=== PATIENT | female | born 1945 | race Caucasian/White ===

== ENCOUNTER → 2017-02-05 | Outpatient (CLI) | payer MEDICARE, OTHER ==
[~2017-02-05] MED LIST: ALEVE220 MG PO; COLACE100 MG PO; LISINOPRIL-HCT1 EAC1 PO; MECLIZINE HCL12.5 MG PO; NON-ASPIRIN EX500 M1 PO; NORCO 5-325 TA1 EACH PO; SENOKOT8.6 MG PO; SIMVASTATIN5 MG PO; TENORMIN25 MG PO; ULTRAM50 MG PO; VALIUM5 MG PO; XARELTO10 MG PO; ZYRTEC10 MG PO
== END | disposition disaster alternative care site (69) ==
LOC: GRAD 13:12
DX: Z01.818 Encounter for other preprocedural examination (principal); M25.551 Pain in right hip

== ENCOUNTER 2017-02-06 14:00 | Inpatient (IN) | payer MEDICARE, OTHER ==
[~2017-02-06] VITALS: Ht 152.4 cm; Wt 53.0 kg
--- NOTE | ~2017-02-06 | DS ---
PATIENT'S NAME: KIMBERLY BURGER [facility] AGE: 71 Y [address] ROOM: [address] [address] LOCATION: [facility] ADMIT DATE: 02/10/2017 Discharge Summary DISCHARGE DATE: 02/12/2017 FAMILY PHYSICIAN: Jordan Styles MD ATTENDING PHYSICIAN: Jordan Frye PRIMARY DIAGNOSIS: Osteoarthritis, right hip. SECONDARY DIAGNOSES: 1. Hypertension. 2. Hypercholesterolemia. PROCEDURE PERFORMED: Right total hip arthroplasty. HISTORY: The patient is a 71-year-old female, who presents with advanced right hip degenerative joint disease and associated severely compromised activities of daily living. The patient has decided to proceed with total right hip arthroplasty after having been thoroughly counseled regarding the risks, benefits, limitations and alternatives. Please refer to the outpatient clinic notes and admission history and physical for this patient. HOSPITAL COURSE: The patient underwent a total right hip arthroplasty on 02/10/2017 without complications. Spinal anesthesia plus subcutaneous and periarticular local anesthesia was utilized. The patient received 24 hours of perioperative prophylactic antibiotics and remained hemodynamically stable, neurovascularly intact throughout the entire hospital course. The postoperative prophylactic deep venous thrombosis prophylaxis consisted of Xarelto, early mobilization and pneumatic compression devices. Daily physical therapy for gait training, transfer training, and reinforcement of hip dislocation precautions were received. The patient progressed well in physical therapy. On the date of discharge, 02/12/2017, the incision at the hip was healing well and showed no signs of infection. DISPOSITION: Home. DISCHARGE ACTIVITY: The patient is to bear weight as tolerated with strict hip dislocation precautions as instructed. There are to be no dressing changes. Dr. Frye is to be notified immediately if there is any increased pain, fevers, chills, erythema or drainage. DISCHARGE MEDICATIONS: 1. Xarelto 10 mg 1 tab p.o. daily for 12 days for postop DVT prophylaxis. 2. [place] 5/325 mg 1 to 2 tabs p.o. every 4 hours p.r.n. for pain. 3. Diazepam 5 mg 1/2 to 1 tab p.o. every 6 hours p.r.n. for muscle spasms. 4. The patient was then instructed to continue all her other pre-admission PATIENT'S NAME: KIMBERLY BURGER [facility] AGE: 71 Y [address] ROOM: [id number] [place], [place] [address] LOCATION: G3N ADMIT DATE: 02/10/2017 Discharge Summary DISCHARGE DATE: 02/12/2017 FAMILY PHYSICIAN: Jordan Styles MD ATTENDING PHYSICIAN: Jordan Frye medications as instructed by her internal medicine doctor. FOLLOWUP: Followup appointment is to be with Dr. Frye's office on 02/17/2017 for her initial postoperative evaluation. ORLANDO NASH PA-C FOR JORDAN FRYE MD SMW/modl /[id number] d: 02/23/17 2247 t: 02/26/17 0923, DISCHARGE SUMMARY
--- NOTE | ~2017-02-06 | OR ---
PATIENT'S NAME: TERRA NELSON [facility] AGE: 71 Y [address] ROOM: [place] [address] LOCATION: [facility] ADMIT DATE: 02/10/2017 OR/Procedure Report DISCHARGE DATE: FAMILY PHYSICIAN: Una Styles MD ATTENDING PHYSICIAN: UNA FRYE SURGEON: Una Frye MD V BLOCK SAW OPERATOR: OLINDA Dawkins and Landon Bone CST/JUNIOR ENGINEER. 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 OPERATION: Right total hip arthroplasty with Angelito SIERRA robotic arm guidance and computer navigation. ANESTHESIA: Spinal anesthesia plus subcutaneous and periarticular local anesthesia (ropivacaine with epinephrine and Toradol). ESTIMATED BLOOD LOSS: Approximately 200 mL. DRAIN: None. SPECIMEN: None. COMPLICATIONS: None. IMPLANTS: 1. Angelito Trident Tritanium size 48 mm hemispherical uncemented acetabular shell with 1 dome hole cover and no screws. 2. Dunbar X3 neutral acetabular polyethylene liner with 32 mm inner diameter. 3. Angelito Accolade II, size 5, high-offset, uncemented femoral component. 4. 32 mm diameter metallic femoral head with -4 mm neck length. INDICATION FOR SURGERY: Ms. Terra Nelson is a 71-year-old female who presents with advanced right hip degenerative joint disease (primary osteoarthritis) potential associated avascular necrosis of femoral head, and associated severely compromised activities of daily living. The patient has decided to proceed with hip replacement after having been thoroughly counseled PATIENT'S NAME: TERRA NELSON [facility] AGE: 71 Y [address] ROOM: [place] [address] LOCATION: [facility] ADMIT DATE: 02/10/2017 OR/Procedure Report DISCHARGE DATE: FAMILY PHYSICIAN: Una Styles MD ATTENDING PHYSICIAN: UNA FRYE regarding the associated risks, benefits, and limitations. We have specifically reviewed the risks and implications of infection, deep venous thrombosis, pulmonary embolism, mortality, neurovascular complications, blood transfusion (and associated potential for disease transmission or transfusion reaction), stiffness, instability, leg length discrepancy, mechanical deterioration of the components (due to wear and to loosening), and the potential need for revision. DESCRIPTION OF PROCEDURE: The patient was positioned in a lateral decubitus position with the right side up after administration of anesthesia and prophylactic antibiotics. An axillary roll was placed and the non-operative leg was well padded. The pelvis was locked perpendicularly to the floor on a pegboard. The right hip and entire operative extremity were prepped and draped with vigilant sterile technique. The patient's name as well as the intended operative side and procedure were confirmed with a verbal time-out involving myself, the circulating nurse, the scrub nurse, and the anesthesiologist. The right hip was approached through a standard posterolateral incision. The fascia sophie and the gluteus danna fascia were sharply divided in line with the overlying skin incision. The sciatic nerve was identified and was vigilantly protected throughout the entire case. The short external rotators and posterior capsule were divided from their respective femoral insertions and tagged with four #1 Ethibond sutures for later repair. The hip was posteriorly dislocated with combined flexion, adduction, and internal rotation. The femoral neck osteotomy was performed with an oscillating saw. Inspection of the femoral head demonstrated subchondral collapse at the superolateral margin of the articular surface. This corresponded to preoperative plain radiographic findings suggesting a subchondral cortical fracture. This involved a 1 cm wide x 2 cm long region at the lateral margin of the articular surface. There was high grade partial thickness articular cartilage loss throughout the superomedial margin of the femoral head. Circumferential acetabular exposure was obtained. Examination of acetabulum demonstrated a moderate effusion consisting of benign appearing translucent synovial fluid. There was a 1 cm x 1.5 cm full thickness delaminating flap of articular cartilage anterosuperiorly. There was degenerative tearing of the acetabular labrum. There was no dysplasia. There were no significant acetabular osteophytes. Remnants of the acetabular labrum were sharply thoroughly excised. The acetabulum was sequentially progressively reamed up to 48 mm with hemispherical power reamers. It should be noted that reaming was performed with the [employer] robotic-arm guidance system. The final acetabular shell PATIENT'S NAME: TERRA NELSON [facility] AGE: 71 Y [address] ROOM: [id number] [place], [place] [address] LOCATION: [facility] ADMIT DATE: 02/10/2017 OR/Procedure Report DISCHARGE DATE: FAMILY PHYSICIAN: Una Styles MD ATTENDING PHYSICIAN: UNA FRYE was impacted into position in 20 degrees of anteversion and 45 degrees of inclination. An excellent press-fit was obtained. No supplemental dome screw fixation was necessary. It should be noted that the acetabular shell was impacted into position using the [employer] robotic-arm guidance system. A neutral trial liner was inserted. Attention was next focused upon femoral preparation. The femoral canal initiator was utilized. No reaming was performed (except for with a canal finder). The patient was noted to be moderately severely osteopenic. The femoral canal was subsequently sequentially progressively broached up to a size 5. The size 5 broach obtained excellent axial and rotational stability. Trial reductions with the above specified construct yielded acceptable stability and acceptable reproduction of leg length and offset. All trial components were removed. The final acetabular liner was inserted with excellent circumferential visualization of its locking mechanism to assure adequate deployment. The final femoral component was impacted into position. The femoral component achieved excellent axial and rotational stability. The trunnion of the femoral component was vigilantly protected prior to placement of the femoral head. The trunnion of the femoral component was thoroughly cleaned and dried prior to placement of the femoral head. The incision was thoroughly irrigated with bacteriostatic pulsatile saline lavage multiple times throughout the case. The entire joint space was thoroughly inspected and thoroughly irrigated to assure that there was no residual debris of any sort. A final reduction was then performed. After final reduction, the hip could be firmly externally rotated in full extension and zero degrees of abduction without anterior subluxation. In neutral rotation and zero degrees of abduction, the hip could be firmly flexed to 120 degrees without instability. At 90 degrees of flexion and zero degrees abduction, the hip could be internally rotated to 65 degrees before there was any hint of posterior subluxation. The posterior capsule and short external rotators were repaired through two drill holes in the posterior aspect of the greater trochanter. The fascia sophie and gluteus danna fascia were closed with multiple simple and [id number] interrupted # 1 Ethibond and #1 Vicryl sutures. Subcutaneous tissues were thoroughly re-irrigated with bacteriostatic pulsatile saline lavage. Subcutaneous tissues were re-approximated with simple buried interrupted #0 Vicryl sutures. The skin was closed with superficial buried interrupted 2-0 Vicryl sutures followed by a running subcuticular 3-0 Monocryl suture, followed by Octylseal, followed by Steri-Strips with benzoin, PATIENT'S NAME: TERRA NELSON [facility] AGE: 71 Y [address] ROOM: [place] [address] LOCATION: [facility] ADMIT DATE: 02/10/2017 OR/Procedure Report DISCHARGE DATE: FAMILY PHYSICIAN: Una Styles MD ATTENDING PHYSICIAN: UNA FRYE followed by an occlusive Mepilex dressing. There were no intra-operative complications. It should be noted that an accessory incision was made over the anterior iliac crest through which 3 partially threaded Steinmann pins were placed within the inner and outer tables of the iliac wing to anchor the computer navigation tracker arrays. These 3 pins were removed intact at the conclusion of the case, and the incision was thoroughly irrigated with bacteriostatic pulsatile saline lavage prior to infiltration of subcutaneous tissues with local anesthetic and closure of this incision with simple deep interrupted 0 Vicryl, followed by superficial buried interrupted 2-0 Vicryl, followed by a running subcuticular 3-0 Monocryl suture, followed by Dermabond with Steri-Strips and an occlusive Mepilex dressing. It should be noted that the physician's anatomic pathology assistant played an active, integral role throughout this entire operation. By providing expert retraction, they greatly facilitated and expedited safe and effective exposure of the proximal femur and acetabulum for preparation and implantation of the components. They were also actively involved in the patient's positioning, prepping and draping, as well as wound closure. MD ADI GARCIA/balaji /[id number] d: 02/10/17 1417 t: 02/27/17 0749, OPERATIVE SUMMARY
[2017-02-06] MEDS ORDERED: TENORMIN25 MG PO (15:31)
[2017-02-06] MEDS ORDERED: LISINOPRIL-HCT1 EAC1 PO (15:31)
[2017-02-06] MEDS ORDERED: SIMVASTATIN5 MG PO (15:32)
[2017-02-06] MEDS ORDERED: ZYRTEC10 MG PO (15:33)
[2017-02-06] MEDS ORDERED: MECLIZINE HCL12.5 MG PO (15:34)
[2017-02-06] MEDS ORDERED: NON-ASPIRIN EX500 M1 PO (15:35)
[2017-02-06] MEDS ORDERED: ALEVE220 MG PO (15:35)
[2017-02-06] MEDS ORDERED: ULTRAM50 MG PO (15:36)
--- NOTE | 2017-02-10 17:12 | NUR ---
Introduced self/role to patient. Patient lives in [place]. Plans to return home upon discharge. Denies any DME needs. Has wheeled walker in room. Reviewed and encouraged use of IS. Understanding verbalized. Reviewed DVT prophylaxis voicing concerns regarding blood clots. Has knee high TEDs bilat; bilat foot pumps and is waving feet. Discussed xarelto and plan to initiate in am. Will follow and assist with identified needs.
--- NOTE | 2017-02-10 19:28 | NUR ---
RETURNED FROM PACU AT 1215. CSM ADEQUATE. NORCO X 2, LAST DOSE ONE TAB AT 1700. VSS. UP TO CHAIR, TOLERATED WELL. DRESSING D/I TO RIGHT HIP, ICE BAG IN PLACE.
--- NOTE | 2017-02-11 04:53 | NUR ---
Significant Event: VSS. On RA. Mepilex dressing x2 sits is CDI. CSM WNL. Up to bathroom with 1 assist, gait belt and walker. [place] for pain last given at 0122, plan to give again this am. Denies nausea. IV's SL'd. Voiding without difficulty. Pleasant and cooperative with cares. Follow up:
--- NOTE | 2017-02-11 10:05 | NUR ---
Introduced self/role to patient. Not feeling well so a short visit. She denied any barriers to going home or at home. Has a friend staying with her, lives in [place]. No DME needed. Added my name to her marker board, will continue to follow.
[2017-02-11 10:29] LABS: HEMATOCRIT 28.8 % (33.0-46.0); HEMOGLOBIN 10.2 g/dL (10.0-15.0)
--- NOTE | 2017-02-11 16:57 | NUR ---
patient up to chair. tolerated well. bp meds held , as patient had low bp this am after being in bathroom. 68/28-90/49, laid back down after 10 mins, and bolus iv saline, bp 114/55. nausea this am at 0740 zofran. valium 2.5 at 1010 and 1610, with good relief. norco at 1310. csm adequate. dressing d/i.
--- NOTE | 2017-02-12 04:18 | NUR ---
Pt received iv dilaudid x1 at 1915 for severe pain, and has been taking norco last at 0430. PO valium last at 2215. Pt denies any lightheaded/dizziness this shift. Takes norco with crackers. VSS. One assist GBW. CSM's intact. Dressing C/D/I. Plan is to go home today. ICE to Right hip and thigh.
[2017-02-12] MEDS ORDERED: COLACE100 MG PO (09:55)
[2017-02-12] MEDS ORDERED: XARELTO10 MG PO (09:57)
[2017-02-12] MEDS ORDERED: SENOKOT8.6 MG PO (10:00)
[2017-02-12] MEDS ORDERED: NORCO 5-325 TA1 EACH PO (10:02)
[2017-02-12] MEDS ORDERED: VALIUM5 MG PO (10:05)
--- NOTE | 2017-02-12 17:25 | NUR ---
PT. UP TO BR WITH STANDBY/WALKER/GAIT BELT. RIGHT HIP DRESSING D/I. PAIN WELL CONTROLLED WITH PAIN MED AND VALIUM. VSS. IV D/C'D PER DISCHARGE. DISCHARGE INSTRUCTIONS GIVEN AND VERBALIZED UNDERSTANDING OF BY PT AND DAUGHTER. DISCHARGED PER WHEELCHAIR WITH DAUGHTER TO FRONT DOOR BY THIS NURSE.
== END 2017-02-12 16:50 | disposition disaster alternative care site (69) | DRG 470 ==
LOC: GPOC 14:00 → G3N 02-10 06:14 → GPOC 02-10 07:00 → GSIP 02-10 07:00 → EDSTATUS 02-10 07:00 → G3N 02-10 07:00
PROVIDERS: Nurse Practitioner Family; ADMIT Orthopaedic Surgery
PROC: 0SR902A Replacement of Right Hip Joint with Metal on Polyethylene Synthetic Substitute, Uncemented, Open Approach (ICD-10-PCS; principal; 2017-02-10)
PROC: 8E0YXBZ Computer Assisted Procedure of Lower Extremity (ICD-10-PCS; principal; 2017-02-10)
DX: M16.11 Unilateral primary osteoarthritis, right hip (principal); I10 Essential (primary) hypertension; E78.5 Hyperlipidemia, unspecified
CPT/HCPCS: A9270; C1713; C1776; J1100; J1170; J1885; J2001; J2250; J2405; J2795; J7030; J7120